=== PATIENT | male | born 1990 | race Hispanic/Latino ===

== ENCOUNTER 2017-01-24 19:09 | Emergency (ER) | payer SELFPAY ==
[2017-01-24 19:13] VITALS: O2SAT 20
--- NOTE | 2017-01-24 19:43 | C.PDOC ---
History Of Present Illness 26 year old male presents to the emergency department with complaints of swollen and painful veins mainly in the right leg. Patient states visible veins were first noticed 8 months ago and in the last 2-3 months vein behind the right knee has become swollen when he sits for extended periods of time. He notes swelling improves with activity. Patient's friends have expressed concern which prompted visit. He denies family history of blood clots, past medical history, using any medications, or other physical complaints at this time. Time Seen by Provider: 01/24/17 19:37 Chief Complaint (Nursing): Lower Extremity Problem/Injury History Per: Patient History/Exam Limitations: no limitations Onset/Duration Of Symptoms: Persistent (first noted 8 months ago ) Current Symptoms Are (Timing): Still Present Recent travel outside of the [place]: No Past Medical History Reviewed: Historical Data, Nursing Documentation, Vital Signs Vital Signs: Last Vital Signs Temp 98.4 F 01/24/17 20:51 Pulse 81 01/24/17 20:51 Resp 20 01/24/17 20:51 BP 141/81 01/24/17 20:51 Pulse Ox 20 L 01/29/17 19:53 Family History: States: Other Other Family History: No family history of blood clots or bleeding disorders. - Social History Hx Alcohol Use: Yes Hx Substance Use: No - Immunization History Hx Tetanus Toxoid Vaccination: No Hx Influenza Vaccination: No Hx Pneumococcal Vaccination: No Review Of Systems Except As Marked, All Systems Reviewed And Found Negative. Constitutional: Negative for: Fever Cardiovascular: Negative for: Chest Pain Respiratory: Negative for: Shortness of Breath Musculoskeletal: Positive for: Leg Pain (swollen and painful veins in the right leg mainly ) Physical Exam - Physical Exam Appears: Non-toxic, No Acute Distress Skin: Warm, Dry Head: Atraumatic Eye(s): bilateral: Normal Inspection, PERRL, EOMI Oral Mucosa: Moist Neck: Supple Chest: Symmetrical, No Deformity Cardiovascular: Rhythm Regular Respiratory: Normal Breath Sounds, No Rhonchi, No Wheezing Extremity: Normal ROM, Calf Tenderness (to area of varicose vein over proximal right calf ), Capillary Refill (good capillary refill, less than ), Other ( Varicose vein to right popliteal fossa of the proximal calf ) Neurological/Psych: Oriented x3 ED Course And Treatment O2 Sat by Pulse Oximetry: 20 Medical Decision Making Medical Decision Making: Bedside ultra sound shows compressible femoral popliteal veins. disc w pt plan to return in am for formal US Disposition - Disposition Referrals: [facility] at [facility] [Outside] Disposition: HOME/ ROUTINE Disposition Time: 20:47 Condition: GOOD Additional Instructions: Please return to the ER tomorrow morning for a formal ultrasound. Follow up with a primary doctor: make an appointment in the next 2 weeks. Forms: General Discharge Instructions, [facility] (Turkish) - Clinical Impression Clinical Impression: Varicosities of leg - Scribe Statement The provider has reviewed the documentation as recorded by the Scribe Leonor King All medical record entries made by the Kranthiibmary beth were at my direction and personally dictated by me. I have reviewed the chart and agree that the record accurately reflects my personal performance of the history, physical exam, medical decision making, and the department course for this patient. I have also personally directed, reviewed, and agree with the discharge instructions and disposition.
[2017-01-24 21:00] VITALS: BP 141/81; PULSE 81; RESP 20; TEMP 98.4
== END 2017-01-24 20:50 | disposition home or self-care (01) ==
LOC: C.ER 19:09
DX: I83.811 Varicose veins of right lower extremity with pain (principal); I83.891 Varicose veins of right lower extremity with other complications